=== PATIENT | male | born 1950 ===

== ENCOUNTER 2017-12-30 10:59 | Emergency (ER) | payer BC, MEDICARE ==
[2017-12-30 11:30] VITALS: BP 150/86
--- NOTE | 2017-12-30 11:41 | UC ---
Throat Pain/Nasal Luis HPI - HPI Summary HPI Summary: 5 days of worsening sinus pain and congestion, nasal (green/yellow) drainage. unsure about fevers---has been taking mucinex without relief - History of Current Complaint Chief Complaint: UCGeneralIllness Stated Complaint: SINUSES Time Seen by Provider: 12/30/17 11:29 Hx Obtained From: Patient Onset/Duration: Sudden Onset, Lasting Days - 5, Worse Since - getting worse daily Severity: Severe Pain Intensity: 10 Pain Scale Used: 0-10 Numeric Cough: None Associated Signs & Symptoms: Positive: Sinus Discomfort, Nasal Discharge - Allergies/Home Medications Allergies/Adverse Reactions: Allergies Allergy/AdvReac Type Severity Reaction Status Date / Time Sulfa (Sulfonamide Allergy Rash And Verified 12/30/17 11:19 Antibiotics) Itching Home Medications: Home Medications Aspirin TAB* [Aspirin 325 MG TAB*] 4 tab PO ONCE PRN 12/30/17 [History Confirmed 12/30/17] Glimepiride 2 mg PO DAILY 12/30/17 [History Confirmed 12/30/17] Insulin Glargine,Hum.rec.anlog [Lantus Solostar 5x3 ML PENS] 0 units SUBCUT DAILY 12/30/17 [History Confirmed 12/30/17] Losartan TAB* [Cozaar TAB*] 25 mg PO DAILY 12/30/17 [History Confirmed 12/30/17] Pioglitazone TAB* [Actos TAB*] 30 mg PO BID 12/30/17 [History Confirmed 12/30/17 ] Sitagliptin Phosphate [Januvia] 100 mg PO DAILY 12/30/17 [History Confirmed ] metFORMIN* [Glucophage 500 MG TAB *] 500 mg PO BID 12/30/17 [History Confirmed 12/30/17] PMH/Surg Hx/FS Hx/Imm Hx Previously Healthy: No Endocrine History: Diabetes Cardiovascular History: Hypertension - Surgical History Surgical History: Yes Surgery Procedure, Year, and Place: APPY - Family History Known Family History: Positive: None - Social History Occupation: Works From/At Home Lives: With Family Alcohol Use: None Substance Use Type: None Smoking Status (MU): Never Smoked Tobacco Review of Systems Constitutional: Negative Skin: Negative Eyes: Negative ENT: Nasal Discharge, Sinus Congestion, Sinus Pain/Tenderness Respiratory: Negative Cardiovascular: Negative Gastrointestinal: Negative Genitourinary: Negative Motor: Negative Neurovascular: Negative Musculoskeletal: Negative Neurological: Headache - frontal Psychological: Negative Is Patient Immunocompromised?: No All Other Systems Reviewed And Are Negative: Yes Physical Exam Triage Information Reviewed: Yes Appearance: Well-Appearing, Well-Nourished, Pain Distress - mild Vital Signs: Initial Vital Signs Temp 98.2 F 12/30/17 11:24 Pulse 64 12/30/17 11:24 Resp 20 12/30/17 11:24 BP 150/86 12/30/17 11:24 Pulse Ox 99 12/30/17 11:24 Vital Signs Reviewed: Yes Eye Exam: Normal Eyes: Positive: Conjunctiva Clear ENT Exam: Normal ENT: Positive: Normal ENT inspection, Hearing grossly normal, Pharynx normal, Nasal congestion, Nasal drainage, TMs normal, Sinus tenderness. Negative: Tonsillar swelling, Tonsillar exudate, Trismus, Muffled voice, Hoarse voice Dental Exam: Normal Neck exam: Normal Neck: Positive: Supple, Nontender, No Lymphadenopathy Respiratory Exam: Normal Respiratory: Positive: Chest non-tender, Lungs clear, Normal breath sounds, No respiratory distress, No accessory muscle use Cardiovascular Exam: Normal Cardiovascular: Positive: RRR, No Murmur, Pulses Normal, Brisk Capillary Refill Musculoskeletal Exam: Normal Musculoskeletal: Positive: Strength Intact, ROM Intact, No Edema Neurological Exam: Normal Neurological: Positive: Alert, Muscle Tone Normal Psychological Exam: Normal Skin Exam: Normal Throat Pain/Nasal Course/Dx - Course Assessment/Plan: Augmentin, flonase, mucinex D--increase fluids follow with pcp prn - Differential Dx/Diagnosis Provider Diagnoses: Acute Sinusitis, IDDM Discharge - Discharge Plan Condition: Stable Disposition: HOME Prescriptions: Amoxicillin/Clavulanate TAB* [Augmentin TAB 875*] 875 mg PO BID #20 tab Fluticasone NASAL SPRAY 50MCG* [Flonase NASAL SPRAY 50MCG*] 2 spray BOTH NARES DAILY #1 btl Patient Education Materials: Decongestant/Expectorant (By mouth), Sinusitis (ED ), Hypertension (ED) Referrals: ATUL Teran [Primary Care Provider] - 2 Weeks
== END 2017-12-30 11:54 | disposition home or self-care (01) ==
LOC: UCCORT 10:59
DX: J01.90 Acute sinusitis, unspecified (principal); Z88.2 Allergy status to sulfonamides; E11.9 Type 2 diabetes mellitus without complications; Z79.4 Long term (current) use of insulin; Z79.84 Long term (current) use of oral hypoglycemic drugs; I10 Essential (primary) hypertension
CPT/HCPCS: 99212; G0463